=== PATIENT | male | born 2005 | race Caucasian/White ===

== ENCOUNTER 2023-08-19 19:16 | Emergency (ER) | payer BC, SELFPAY ==
[2023-08-19 19:21] VITALS: BP 135/90; PULSE 84; RESP 18; TEMP 36.8; O2SAT 95; BMI 20.2
--- NOTE | 2023-08-19 20:14 | ED_ITS ---
HPI - Abdominal Pain General Date Seen: 08/19/23 <Erik Loving DO - Last Filed: 08/19/23 21:36> Chief Complaint: Abdominal Pain <Erik Loving DO - Last Filed: 08/19/23 21:36> Stated Complaint: pain in abdomen <Erik Loving DO - Last Filed: 08/19/23 21:36> Time Seen by Provider: 08/19/23 20:02 <Erik Scruggsram DO - Last Filed: 08/19/23 21:36> Source: patient <Erik Loving DO - Last Filed: 08/19/23 21:36> Mode of arrival: ambulatory <Erik Loving - Last Filed: 08/19/23 21:36> Limitations: no limitations <Erik Loving DO - Last Filed: 08/19/23 21:36> History of Present Illness HPI narrative: Patient is a 18-year-old male presenting for left-sided abdominal pain. Said the pain started about 3 hours prior to arrival. At that time it took ibuprofen for pain with minimal improvement in his symptoms. Says the pain seems to come and go. Has never had pain like this before. Has not had any nausea or vomiting. Last bowel movement was this morning says it was normal. Has no previous abdominal surgeries. Denies fevers, chills, dysuria, chest pain, shortness of breath, lightheadedness, dizziness, weakness, numbness. Pain does not seem to radiate. States right now the pain is relatively mild. <Erik Loving - Last Filed: 08/19/23 21:36> Related Data Home Medications: Home Medications Medication Instructions Recorded Confirmed dextroamphetamine-amphetamine ER 40 mg PO DAILY 08/07/23 08/19/23 20 mg 24hr capsule,extend release <Erik Sandor Loving - Last Filed: 08/19/23 21:36> Allergies/Adverse Reactions: Allergies Allergy/AdvReac Type Severity Reaction Status Date / Time No Known Drug Allergies Allergy Verified 08/19/23 19:25 <Erik Loving DO - Last Filed: 08/19/23 21:36> Review of Systems Status of ROS Reports: 10 or more systems reviewed and unremarkable except as noted in History and below <Erik Loving DO - Last Filed: 08/19/23 21:36> [facility] Surgical History: Surgical History Status post thoracotomy ?Z98.890 - Other specified postprocedural states (ICD-10) History of placement of ear tubes (08/06/12) ?Z96.22 - Myringotomy tube(s) status (ICD-10) <Erik Loving DO - Last Filed: 08/19/23 21:36> Family History: Family History Other Hemochromatosis <Erik Loving DO - Last Filed: 08/19/23 21:36> Social History: Social History Smoking Status: Current every day smoker What tobacco products do you use: cigarettes Smoking packs per day: 0.25 Smoking cigarettes per day: 5.0 Years smoked: 1 Smoking pack-years: 0.25 and cigars Do you use any of these nicotine containing products: E-Cigarettes and Vaping Products Second hand tobacco smoke exposure: No How often do you have a drink containing alcohol: 2-4 times a month How many standard drinks containing alcohol do you have on a typical day: 1 or 2 AUDIT-C Alcohol total score: 2 Non-prescribed substance use: denies use Little interest or pleasure in doing things: several days Feeling down, depressed, or hopeless: several days <Erik Loving DO - Last Filed: 08/19/23 21:36> Exam Narrative: Exam Narrative: Const: Well-nourished, Well-developed, in mild distress Eyes: PERRL, no conjunctival injection, and symmetrical lids HENT: Atraumatic external nose and ears. Moist mucous membranes. Neck: Symmetric, trachea midline, No thyromegaly. CVS: RRR, No murmurs or gallops. Peripheral pulses 2+ and equal in all extremities RESP: Unlabored respiratory effort. Clear to auscultation bilaterally. GI: Mild left lower quadrant tenderness, Nondistended, No rebound or guarding. MSK:Extremities w/o deformity, Normal Active ROM Skin: Warm, Dry. No rashes or lesions. Neuro: Normal Muscle tone, No focal neurological deficits. Psych: Awake, Alert, & Oriented x3. Appropriate mood and affect. <Erik Loving DO - Last Filed: 08/19/23 21:36> Const: Vital Signs, click to edit/add: Vital Signs - 24 hr 08/19/23 19:21 Temperature 98.2 F Pulse Rate [Pulse Oximeter] 84 Respiratory Rate 18 Blood Pressure [Ri ght Upper Arm] 135/90 H Pulse Oximetry 95 Oxygen Delivery Me thod Room Air <Erik Loving DO - Last Filed: 08/19/23 21:36> Vital Signs, click to edit/add: Vital Signs - 24 hr 08/19/23 19:21 Temperature 98.2 F Pulse Rate [Pulse Oximeter] 84 Respiratory Rate 18 Blood Pressure [Ri ght Upper Arm] 135/90 H Pulse Oximetry 95 Oxygen Delivery Me thod Room Air <Rodriguez Alexandra MD - Last Filed: 09/18/23 14:19> Documenting provider has reviewed patient's vital signs: yes <Rodriguez Alexandra MD - Last Filed: 09/18/23 14:19> Course Vital Signs Vital signs: Initial Vital Signs Temperature 98.2 F 08/19/23 19:21 Temperature Source Temporal Artery Scan 08/19/23 19:21 Pulse Rate 84 08/19/23 19:21 Respiratory Rate 18 08/19/23 19:21 Blood Pressure 135/90 H 08/19/23 19:21 Blood Pressure Mean 105 08/19/23 19:21 Blood Pressure Position Sitting 08/19/23 19:21 Pulse Oximetry 95 08/19/23 19:21 Oxygen Delivery Method Room Air 08/19/23 19:21 Vital Signs Temperature 98.2 F 08/19/23 19:21 Pulse Rate 84 08/19/23 19:21 Respiratory Rate 18 08/19/23 19:21 Blood Pressure 135/90 H 08/19/23 19:21 Pulse Oximetry 95 08/19/23 19:21 Oxygen Delivery Method Room Air 08/19/23 19:21 Temperature 98.2 F 08/19/23 19:21 Pulse Rate 84 08/19/23 19:21 Respiratory Rate 18 08/19/23 19:21 Blood Pressure 135/90 H 08/19/23 19:21 Pulse Oximetry 95 08/19/23 19:21 Oxygen Delivery Method Room Air 08/19/23 19:21 <Erik Loving DO - Last Filed: 08/19/23 21:36> Initial Vital Signs Temperature 98.2 F 08/19/23 19:21 Temperature Source Temporal Artery Scan 08/19/23 19:21 Pulse Rate 84 08/19/23 19:21 Respiratory Rate 18 08/19/23 19:21 Blood Pressure 135/90 H 08/19/23 19:21 Blood Pressure Mean 105 08/19/23 19:21 Blood Pressure Position Sitting 08/19/23 19:21 Pulse Oximetry 95 08/19/23 19:21 Oxygen Delivery Method Room Air 08/19/23 19:21 Vital Signs Temperature 98.2 F 08/19/23 19:21 Pulse Rate 84 08/19/23 19:21 Respiratory Rate 18 08/19/23 19:21 Blood Pressure 135/90 H 08/19/23 19:21 Pulse Oximetry 95 08/19/23 19:21 Oxygen Delivery Method Room Air 08/19/23 19:21 Temperature 98.2 F 08/19/23 19:21 Pulse Rate 84 08/19/23 19:21 Respiratory Rate 18 08/19/23 19:21 Blood Pressure 135/90 H 08/19/23 19:21 Pulse Oximetry 95 08/19/23 19:21 Oxygen Delivery Method Room Air 08/19/23 19:21 <Rodriguez Alexandra MD - Last Filed: 09/18/23 14:19> Medications Administered Medications: Discontinued Medications Generic Name Dose Route Start Last Admin Trade Name Freq PRN Reason Stop Dose Admin Ketorolac Tromethamine 15 mg 08/19/23 20:05 08/19/23 20:10 Ketorolac 15 Mg/Ml Inj IVP 08/19/23 20:06 Not Given ONCE ONE <Erik Loving DO - Last Filed: 08/19/23 21:36> Discontinued Medications Generic Name Dose Route Start Last Admin Trade Name Freq PRN Reason Stop Dose Admin Ketorolac Tromethamine 15 mg 08/19/23 20:05 08/19/23 20:10 Ketorolac 15 Mg/Ml Inj IVP 08/19/23 20:06 Not Given ONCE ONE <Rodriguez Alexandra MD - Last Filed: 09/18/23 14:19> MDM - Abdominal Pain MDM Narrative Medical decision making narrative: Patient is a 18-year-old male presenting for left-sided abdominal pain. Most his pain seems to be left lower quadrant. Typically this would make me think diverticulitis but considering his age this seems unlikely. Has had normal bowel movements so SBO seems unlikely. Seems too young to be from diverticulitis. Could just be viral gastritis but will order lab work to look for any abnormalities. Will wait to do CT scan once lab work returns as I do not want to put this patient to unnecessary radiation. Patient's white blood cell count came back at 12.2. CMP showed no concerning findings. Urinalysis showed no concerning findings. COVID and flu were negative. Patient states his symptoms feel better at this point and I spoke to mom the risk versus benefits of doing abdominal CT scan. He states he would like to wait for his father to arrive to talk about this. Once his father's arrived we did share decision making and they want the CT scan done. It was ordered. Signed out to my colleague Dr. Alexandra to follow-up on the results. <Erik Loving DO - Last Filed: 08/19/23 21:36> Patient is a 18-year-old male presenting for left-sided abdominal pain. Most his pain seems to be left lower quadrant. Typically this would make me think diverticulitis but considering his age this seems unlikely. Has had normal bowel movements so SBO seems unlikely. Seems too young to be from diverticulitis. Could just be viral gastritis but will order lab work to look for any abnormalities. Will wait to do CT scan once lab work returns as I do not want to put this patient to unnecessary radiation. Patient's white blood cell count came back at 12.2. CMP showed no concerning findings. Urinalysis showed no concerning findings. COVID and flu were negative. Patient states his symptoms feel better at this point and I spoke to mom the risk versus benefits of doing abdominal CT scan. He states he would like to wait for his father to arrive to talk about this. Once his father's arrived we did share decision making and they want the CT scan done. It was ordered. Signed out to my colleague Dr. Alexandra to follow-up on the results. Ibrahima -- inherited Mr. Benitez as the patient to change of shift. Pending results of CT imaging of the abdomen/pelvis. I did review these images myself not able to identify anything particularly abnormal. Radiology over-read as below. TECHNIQUE: CT abdomen and pelvis acquired with 62 cc Isovue 370 IV contrast. COMPARISON: None FINDINGS: Lower chest: Status post median sternotomy. Liver: Hepatic steatosis. Spleen: Unremarkable. Pancreas: Unremarkable. Gallbladder and bile ducts: Unremarkable. Adrenal glands: Unremarkable. Kidneys: Unremarkable. GI tract: Unremarkable. Appendix is normal. Vascular structures: Unremarkable. Lymph nodes: Unremarkable. Miscellaneous: Unremarkable. No free air or significant free fluid. Pelvic Organs: Unremarkable. Bones: Bilateral L5 pars defects. IMPRESSION: 1. No etiology seen to explain left lower quadrant pain. No acute inflammatory process identified. 2. Hepatic steatosis. On reassessment reporting very minimal discomfort. Upon further inquery into his pain, seem to be worse when he was ambulating this evening and also with a rotational movement the trunk rotating to the left with his upper body. He describes the pain further as sharp, colicky. He also says that he is making well-formed stool. Colicky nature does make me think that there is some intestinal relationship here. Suspect somewhat constipated. On review of sabas ging does seem like there is also good deal of abdominal gas. See patient discharge plan <Rodriguez Alexandra MD - Last Filed: 09/18/23 14:19> Lab Data Attestation: I reviewed the patient's lab results. <Rodriguez Alexandra MD - Last Filed: 09/18/23 14:19> Labs: Lab Results 08/19/23 08/19/23 Range/Units 20:15 20:30 WBC 12.21 H (4.50-11.00) K/uL RBC 5.02 (4.30-5.90) m/uL Hgb 15.7 (13.5-17.5) gm/dL Hct 45.9 (37.0-53.0) % MCV 91 (80-100) fL MCH 31 (26-34) pg MCHC 34 (32-36) gm/dL RDW Coeff of Macario 11.9 (11.5-15.5) % Plt Count 217 (140-440) K/uL Neut % (Auto) 85.2 H (42.0-72.0) % Lymph % (Auto) 8.5 L (20-44) % [place] % (Auto) 5.2 (0.0-11.0) % Eos % (Auto) 0.4 (0.0-7.0) % Baso % (Auto) 0.5 (0.0-3.0) % Neut # (Auto) 10.40 H (1.7-7.0) K/uL Lymph # (Auto) 1.00 (0.90-2.90) K/uL [place] # (Auto) 0.60 (0.00-0.90) K/UL Eos # (Auto) 0.00 (0.00-0.50) K/uL Baso # (Auto) 0.10 (0.00-0.30) K/uL Abs Immat Gran (auto) 0.00 (0.00-0.30) K/uL Imm/Tot Granulo (auto) 0.2 % Sodium 137 (135-149) mmol/L Potassium 4.5 (3.6-5.1) mmol/L Chloride 104 (96-114) mmol/L Carbon Dioxide 25 (20-32) mmol/L Anion Gap 8 (7-15) mEq/L BUN 26 H (5-24) mg/dL Creatinine 0.9 (0.5-1.5) mg/dL Estimated Creat Clear 105.00 Estimated GFR 125 ml/min Glucose 94 (60-115) mg/dL Calcium 10.0 (8.4-10.6) mg/dL Total Bilirubin 1.1 (0.1-1.5) mg/dL AST 22 (12-35) U/L ALT 13 (4-50) U/L Alkaline Phosphatase 78 (40-150) U/L Total Protein 8.1 (6.0-8.3) g/dL Albumin 4.6 (3.3-5.0) g/dL Lipase 33 (23-300) U/L Urine Color Yellow (Yellow) Urine Appearance Clear (Clear) Urine pH 6.0 (5.0-8.5) Ur Specific [place] 1.025 (1.000-1.030) Urine Protein Negative (Negative) Urine Glucose (UA) Negative (Negative) Urine Ketones Negative (Negative) Urine Blood Negative (Negative) Urine Nitrite Negative (Negative) Urine Bilirubin Negative (Negative) Urine Urobilinogen 0.2 (0.2-1.0) Ur Leukocyte Esterase Negative (Negative) Urine RBC 0-2 (0-2) Urine WBC 0-2 (0-5) Ur Squamous Epith Cells Few (None-Few) Urine Bacteria None (None) SARS-CoV-2 (PCR) Negative SARS-CoV-2 (Negative) Influenza Type A (PCR) Negative PCR FLU A (Negative) Influenza Type B (PCR) Negative PCR FLU B (Negative) <Erik Loving, DO - Last Filed: 08/19/23 21:36> Lab Results 08/19/23 08/19/23 Range/Units 20:15 20:30 WBC 12.21 H (4.50-11.00) K/uL RBC 5.02 (4.30-5.90) m/uL Hgb 15.7 (13.5-17.5) gm/dL Hct 45.9 (37.0-53.0) % MCV 91 (80-100) fL MCH 31 (26-34) pg MCHC 34 (32-36) gm/dL RDW Coeff of Macario 11.9 (11.5-15.5) % Plt Count 217 (140-440) K/uL Neut % (Auto) 85.2 H (42.0-72.0) % Lymph % (Auto) 8.5 L (20-44) % [place] % (Auto) 5.2 (0.0-11.0) % Eos % (Auto) 0.4 (0.0-7.0) % Baso % (Auto) 0.5 (0.0-3.0) % Neut # (Auto) 10.40 H (1.7-7.0) K/uL Lymph # (Auto) 1.00 (0.90-2.90) K/uL [place] # (Auto) 0.60 (0.00-0.90) K/UL Eos # (Auto) 0.00 (0.00-0.50) K/uL Baso # (Auto) 0.10 (0.00-0.30) K/uL Abs Immat Gran (auto) 0.00 (0.00-0.30) K/uL Imm/Tot Granulo (auto) 0.2 % Sodium 137 (135-149) mmol/L Potassium 4.5 (3.6-5.1) mmol/L Chloride 104 (96-114) mmol/L Carbon Dioxide 25 (20-32) mmol/L Anion Gap 8 (7-15) mEq/L BUN 26 H (5-24) mg/dL Creatinine 0.9 (0.5-1.5) mg/dL Estimated Creat Clear 105.00 Estimated GFR 125 ml/min Glucose 94 (60-115) mg/dL Calcium 10.0 (8.4-10.6) mg/dL Total Bilirubin 1.1 (0.1-1.5) mg/dL AST 22 (12-35) U/L ALT 13 (4-50) U/L Alkaline Phosphatase 78 (40-150) U/L Total Protein 8.1 (6.0-8.3) g/dL Albumin 4.6 (3.3-5.0) g/dL Lipase 33 (23-300) U/L Urine Color Yellow (Yellow) Urine Appearance Clear (Clear) Urine pH 6.0 (5.0-8.5) Ur Specific [place] 1.025 (1.000-1.030) Urine Protein Negative (Negative) Urine Glucose (UA) Negative (Negative) Urine Ketones Negative (Negative) Urine Blood Negative (Negative) Urine Nitrite Negative (Negative) Urine Bilirubin Negative (Negative) Urine Urobilinogen 0.2 (0.2-1.0) Ur Leukocyte Esterase Negative (Negative) Urine RBC 0-2 (0-2) Urine WBC 0-2 (0-5) Ur Squamous Epith Cells Few (None-Few) Urine Bacteria None (None) SARS-CoV-2 (PCR) Negative SARS-CoV-2 (Negative) Influenza Type A (PCR) Negative PCR FLU A (Negative) Influenza Type B (PCR) Negative PCR FLU B (Negative) <Rodriguez Alexandra MD - Last Filed: 09/18/23 14:19> Discharge Plan Discharge Clinical Impression: Abdominal pain, colicky <Erik Loving DO - Last Filed: 08/19/23 21:36> Patient Disposition: Home, Self-Care <Erik Loving DO - Last Filed: 08/19/23 21:36> Condition: Stable <Erik Loving DO - Last Filed: 08/19/23 21:36> Instructions: Abdominal Pain (ED) <Erik Lvoing DO - Last Filed: 08/19/23 21:36> Additional Instructions: Given what we talked about I do think that you might benefit from some stool softeners of some sort. Be sure to drink 2-3 L of water a day. You might add MiraLax equivalent into your liquid intake for 2-3 doses daily and then adjust to stool consistency. Dulcolax is another option you might try; a couple of tabs daily . Increasing vegetable and fruit intake of course is an ideal way to treat. Recommend following up in primary care clinic if the symptoms are continuing over week but not necessarily worsening. At this point can take up to 800 mg of ibuprofen or up to 1000 mg of acetaminophen for pain. Warm packs might also be helpful. Return to the emergency department for persistent and marked increase in pain, associated repeated vomiting or fever. <Erik Loving DO - Last Filed: 08/19/23 21:36> Prescriptions: No Action dextroamphetamine-amphetamine 20 mg capsule,extended release 24hr 40 mg PO DAILY <Erik Loving DO - Last Filed: 08/19/23 21:36> Follow Up/Referrals: Provider,Not a Local [Primary Care Provider] - <DO Evie Sarmiento Last Filed: 08/19/23 21:36> Stand Alone Forms: MyHealth Info Instructions <Erik Loving DO - Last Filed: 08/19/23 21:36>
[2023-08-19 20:22] LABS: Basophils Percent Auto 0.5 % (0.0-3.0); Eosinophils Percent Auto 0.4 % (0.0-7.0); Hematocrit 45.9 % (37.0-53.0); Hemoglobin* 15.7 gm/dL (13.5-17.5); Immature Granulocytes Pct Auto 0.2 %; Lymphocytes Percent Auto 8.5 % (20-44); Mean Corpuscular HGB Conc 34 gm/dL (32-36); Mean Corpuscular Hemoglobin 31 pg (26-34); Mean Corpuscular Volume 91 fL (80-100); Monocytes Percent Auto 5.2 % (0.0-11.0); Neutrophils Percent Auto 85.2 % (42.0-72.0); Platelet Count* 217 K/uL (140-440); RDW Coefficient of Variation % 11.9 % (11.5-15.5); Red Blood Count 5.02 m/uL (4.30-5.90); White Blood Count* 12.21 K/uL (4.50-11.00)
[2023-08-19 20:26] LABS: Slide Review Reflex No
[2023-08-19 20:40] LABS: Albumin* 4.6 g/dL (3.3-5.0); Chloride* 104 mmol/L (96-114); Potassium* 4.5 mmol/L (3.6-5.1); Sodium* 137 mmol/L (135-149)
[2023-08-19 20:42] LABS: Anion Gap 8 mEq/L (7-15); Aspartate Amino Transferase* 22 U/L (12-35); Bilirubin Total* 1.1 mg/dL (0.1-1.5); Carbon Dioxide* 25 mmol/L (20-32); Creatinine* 0.9 mg/dL (0.5-1.5); Estimated Glomerular Filt Rate 125 ml/min; Total Protein* 8.1 g/dL (6.0-8.3)
[2023-08-19 20:43] LABS: Alanine Aminotransferase* 13 U/L (4-50); Alkaline Phosphatase* 78 U/L (40-150); Blood Urea Nitrogen* 26 mg/dL (5-24); Glucose* 94 mg/dL (60-115); Lipase* 33 U/L (23-300)
[2023-08-19 20:48] LABS: Appearance Urine Clear (Clear); Bilirubin Urine Negative (Negative); Blood Urine Negative (Negative); Color Urine Yellow (Yellow); Glucose Urine Negative (Negative); Ketones Urine Negative (Negative); Leukocyte Esterase Urine Negative (Negative); Nitrite Urine Negative (Negative); Protein Urine Negative (Negative); Specific Gravity Urine 1.025 (1.000-1.030); Urobilinogen Urine 0.2 (0.2-1.0)
[2023-08-19 20:55] LABS: RBC Urine 0-2 (0-2); Squamous Epithelial Cell Urine Few (None-Few); WBC Urine 0-2 (0-5)
[2023-08-19 20:58] LABS: PCR FLU A Negative PCR FLU A (Negative); PCR FLU B Negative PCR FLU B (Negative)
[2023-08-19 21:09] LABS: SARS PCR* Negative SARS-CoV-2 (Negative)
--- NOTE | 2023-08-19 21:12 | CRLHL7_ITS ---
For Patients: As a result of the Century Cures Act, medical imaging exams and procedure reports are released immediately into your electronic medical record. You may view this report before your referring provider. If you have questions, please contact your health care provider. INDICATION: Left lower quadrant pain TECHNIQUE: CT abdomen and pelvis acquired with 62 cc Isovue 370 IV contrast. COMPARISON: None FINDINGS: Lower chest: Status post median sternotomy. Liver: Hepatic steatosis. Spleen: Unremarkable. Pancreas: Unremarkable. Gallbladder and bile ducts: Unremarkable. Adrenal glands: Unremarkable. Kidneys: Unremarkable. GI tract: Unremarkable. Appendix is normal. Vascular structures: Unremarkable. Lymph nodes: Unremarkable. Miscellaneous: Unremarkable. No free air or significant free fluid. Pelvic Organs: Unremarkable. Bones: Bilateral L5 pars defects. IMPRESSION: 1. No etiology seen to explain left lower quadrant pain. No acute inflammatory process identified. 2. Hepatic steatosis. Please note that all CT scans at this facility use dose modulation, iterative reconstruction, and/or weight-based dosing when appropriate to reduce radiation dose to as low as reasonably achievable. Dictated by Haritha Cote MD @ 08/19/2023 10:47:05 PM (Electronically Signed)
== END 2023-08-19 23:24 | disposition home or self-care (01) ==
PROVIDERS: Emergency Provider Student in an Organized Health Care Education/Training Program
DX: R10.84 Generalized abdominal pain (principal)
CPT/HCPCS: 36415; 74177; 80053; 81001; 83690; 85025; 87631; 95992; 96374; 99284; 99285; Q9967

== ENCOUNTER 2025-01-05 15:12 | Outpatient (CLI) | payer BC, SELFPAY ==
[2025-01-08 04:44] LABS: EBV Ab Viral Capsid Ag IgG >750.0 U/mL (0.0-21.9); EBV Ab Viral Capsid Ag IgM <10.0 U/mL (0.0-43.9); EBV Ab to Early (D) Ag IgG 29.3 U/mL (0.0-10.9)
== END 2025-01-05 15:13 | disposition home or self-care (01) ==
LOC: NFLDUCREF 15:12
PROVIDERS: PCP Family Medicine; Visit Provider Nurse Practitioner Family
DX: J02.9 Acute pharyngitis, unspecified (principal)
CPT/HCPCS: 86663; 86664; 86665